=== PATIENT | female | born 2000 | race American Indian/Alaskan Native ===

== ENCOUNTER 2020-06-07 15:03 | Emergency (ER) | payer SELFPAY ==
[2020-06-07 15:36] VITALS: BP 135/66
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
== END 2020-06-07 18:45 | disposition home or self-care (01) ==
LOC: ED 15:03
DX: S43.492A Other sprain of left shoulder joint, initial encounter (principal); S23.9XXA Sprain of unspecified parts of thorax, initial encounter; M41.80 Other forms of scoliosis, site unspecified; Z79.899 Other long term (current) drug therapy; V49.49XA Driver injured in collision with other motor vehicles in traffic accident, initial encounter; Y92.410 Unspecified street and highway as the place of occurrence of the external cause; Y93.89 Activity, other specified; Y99.8 Other external cause status
CPT/HCPCS: 72070

== ENCOUNTER 2021-05-07 19:32 | Emergency (ER) | payer SELFPAY | END 2021-05-09 08:45 | disposition left against medical advice (07) | LOC: ED 19:32 | DX: Z04.1 Encounter for examination and observation following transport accident (principal); Z53.21 Procedure and treatment not carried out due to patient leaving prior to being seen by health care provider; V89.2XXA Person injured in unspecified motor-vehicle accident, traffic, initial encounter; Y93.89 Activity, other specified; Y92.89 Other specified places as the place of occurrence of the external cause; Y99.8 Other external cause status ==